=== PATIENT | female | born 1945 | race Caucasian/White ===

== ENCOUNTER → 2021-06-16 | Outpatient (CLI) | payer MEDICARE | LOC: HEART CORB 14:00 | DX: I48.91 Unspecified atrial fibrillation (principal); I08.3 Combined rheumatic disorders of mitral, aortic and tricuspid valves; I27.20 Pulmonary hypertension, unspecified | CPT/HCPCS: 93306 ==

== ENCOUNTER 2021-08-15 09:28 | Inpatient (IN) | payer MEDICARE ==
[~2021-08-15] VITALS: Ht 152.4 cm; Wt 64.0 kg
[2021-08-15 10:15] LABS: HEMOGLOBIN 15.6 gm/dl (12.3-15.3); RED BLOOD COUNT 5.1 M/UL (4.00-5.10); WHITE BLOOD COUNT 8.9 K/UL (4.5-11.0)
[2021-08-15] MEDS ORDERED: LOPRESSOR50 MG PO (13:49)
[2021-08-15] MEDS ORDERED: WARFARIN SODIUM3 MG PO (13:50)
[2021-08-15] MEDS ORDERED: LEVOTHYROXINE88 MCG PO (13:50)
[2021-08-16 04:36] LABS: BUN/CREATININE RATIO 35 (0-10)
[2021-08-16 04:37] LABS: HEMOGLOBIN 13.6 gm/dl (12.3-15.3); RED BLOOD COUNT 4.48 M/UL (4.00-5.10)
[2021-08-18] MEDS ORDERED: BETAPACE 80MG T80 MG PO (08:24)
[2021-08-18] MEDS ORDERED: LASIX40 MG PO (08:24)
[2021-08-18] MEDS ORDERED: ASPIRIN EC81 MG PO (08:24)
[2021-08-18] MEDS ORDERED: LASIX20 MG PO (15:30)
[2021-08-18] MEDS ORDERED: JANTOVEN1 MG PO (16:03)
[2021-08-18] MEDS ORDERED: K-TAB ER10 MEQ PO (16:20)
== END 2021-08-18 17:06 | disposition home or self-care (01) | DRG 291 ==
LOC: ER1 09:28 → PROG CARE 13:11 → CDU 13:11 → PROG CARE 14:26
PROVIDERS: Physician Assistant; Physician Assistant Medical; ADMIT Internal Medicine
PROC: B24BZZZ Ultrasonography of Heart with Aorta (ICD-10-PCS; principal; 2021-08-18)
DX: I11.0 Hypertensive heart disease with heart failure (principal); I50.21 Acute systolic (congestive) heart failure; I48.92 Unspecified atrial flutter; I48.91 Unspecified atrial fibrillation; G47.00 Insomnia, unspecified; I34.0 Nonrheumatic mitral (valve) insufficiency; R94.5 Abnormal results of liver function studies; Z20.822 Contact with and (suspected) exposure to COVID-19; E03.9 Hypothyroidism, unspecified; Z95.810 Presence of automatic (implantable) cardiac defibrillator; Z95.5 Presence of coronary angioplasty implant and graft; Z95.4 Presence of other heart-valve replacement; Z82.49 Family history of ischemic heart disease and other diseases of the circulatory system; Z82.3 Family history of stroke; Z79.01 Long term (current) use of anticoagulants; Z90.710 Acquired absence of both cervix and uterus; Z98.890 Other specified postprocedural states
CPT/HCPCS: ECHO; 36415; 71045; 78452; 80048; 80053; 81001; 82550; 82553; 83605; 83735; 83880; 84439; 84443; 84484; 85025; 85027; 85379; 85610; 85730; 93005; 93017; 93306; 96374; 97116; 97162; 99285; A9502; J1940; J2785